=== PATIENT | male | born 1965 | race Caucasian/White ===

== ENCOUNTER → 2018-02-25 | Outpatient (CLI) | payer BC ==
--- NOTE | 2018-02-27 10:49 | MR ---
EXAMINATION TYPE: MR shoulder LT wo con DATE OF EXAM: 02/25/2018 COMPARISON: None HISTORY: Pain in left shoulder after a fall. Pain has lasted for approximately 2 weeks TECHNIQUE: Multiplanar, multisequence imaging of the left shoulder is performed without contrast. FINDINGS: Rotator Cuff: There is a low-grade partial-thickness tear of the most anterior insertional fibers of the supraspinatus measuring 0.7 x 0.8 mm. There is bursal surface fraying of the supraspinatus and mi ld tendinosis demonstrated is alteration of the and 6 signal of the myotendinous junction and distal fibers. Overlying this there is a small amount of fluid in the subacromial/deltoid bursa. Bursal surface fiber fraying is seen of the infraspinatus with mild tendinopathy. No discrete tear is identified. The teres minor is unremarkable in signal and morphology. The most distal insertional fibers of the s ubscapularis demonstrates signal heterogeneity indicative of mild tendinosis. No discrete tear is see n. Acromioclavicular Joint: There is moderate acromioclavicular arthropathy creating internal impingemen t as there is impression upon the myotendinous junction of the supraspinatus and slight alteration in signal. Acromioclavicular arthropathy is demonstrated as small marginal osteophytes and capsular hyp ertrophy with joint space narrowing. Glenohumeral Joint: Mild glenohumeral arthropathy is noted as there are few osseous cysts of the cm ral head and very mild glenohumeral joint space narrowing. Labrum: There is abnormal signal of the anterior inferior glenoid labrum and diminutive appearance of the anterior superior glenoid labrum. The posterior labrum appears intact but diminutive and of abno rmal signal in the superior aspect. Findings raise suspicion for glenoid labrum tear and could be con firmed with arthrography. Biceps Tendon: The long head of biceps is in normal location within bicipital groove. Bone marrow signal: No focal abnormal marrow signal is appreciated. Other: There is a small amount of fluid seen within the subcoracoid bursa. IMPRESSION: 1. Low-grade partial-thickness tear of the most anterior insertional fibers of the supraspinatus eric uring less than 1 cm. 2. Mild supraspinatus, infraspinatus, and subscapularis tendinopathy. 3. Moderate acromio clavicular arthropathy creating internal impingement of the supraspinatus myotend inous junction. 4. Findings suggestive of anterior inferior and anterior superior glenoid labral tear versus glenoid labrum degeneration with labral degeneration also seen of the posterior superior labrum. If clinical findings are fitting MR findings could be confirmed with MR arthrography. 5. Bursal surface fiber fraying of the supraspinatus and infraspinatus with small amount of fluid in the subacromial/subdeltoid bursa and subcoracoid bursa that may clinically correlate with bursitis. 6. Mild glenohumeral arthropathy.
== END ==
LOC: RADMRIMAIN 16:57
PROVIDERS: ATTEND Family Medicine
DX: M75.112 Incomplete rotator cuff tear or rupture of left shoulder, not specified as traumatic (principal); M75.82 Other shoulder lesions, left shoulder; M12.812 Other specific arthropathies, not elsewhere classified, left shoulder

== ENCOUNTER 2020-02-20 09:53 | Emergency (ER) | payer BC ==
[2020-02-20] MEDS ORDERED: SODIUM CHLORIDE 0.9% 1,000 ML IV STA (10:02)
[2020-02-20 10:03] VITALS: RESP 18
[2020-02-20] MEDS ORDERED: DEXAMETHASONE SOD PHOSPHATE 10 MG/ML 1 ML VIAL IV STA (10:32)
--- NOTE | 2020-02-20 10:35 | ED ---
General Adult HPI - General Chief complaint: Urogenital Stated complaint: Kidney pain. + covid on 02/16/20 Time Seen by Provider: 02/20/20 09:57 Source: patient Mode of arrival: ambulatory Limitations: no limitations - History of Present Illness Initial comments: Dictation was produced using [employer] dictation software. please excuse any grammatical, word or spelling errors. This patient was cared for during a federal and state declared state of emergency secondary to Covid 19 Chief Complaint: 54-year-old Covid positive male presents today with lower back pain History of Present Illness: 54-year-old male who presents with lower back pain. Patient states he tested Covid positive on Wednesday which was about 5 days ago. Patient states that over the last couple days she's been having worsening back pain. He has feeling like his kidneys are hurting. Patient denies any shortness of breath. Been having mild constitutional symptoms. He reports that his pain is worse when he lies flat or sits in a chair however gets better when he stands up and walks around. Does not have any history of back surgery or chronic back pain. Patient states that several years ago he had kidney stones. No nausea vomiting. The ROS documented in this emergency department record has been reviewed and confirmed by me. Those systems with pertinent positive or negative responses have been documented in the HPI. All other systems are other negative and/or noncontributory. PHYSICAL EXAM: General Impression: Alert and oriented x3, not in acute distress HEENT: Normocephalic atraumatic, extra-ocular movements intact, pupils equal and reactive to light bilaterally, mucous membranes moist. Cardiovascular: Heart regular rate and rhythm Chest: Able to complete full sentences, no retractions, no tachypnea Abdomen: abdomen soft, non-tender, non-distended, no organomegaly Musculoskeletal: Pulses present and equal in all extremities, no peripheral edema Lower back: No CVA tenderness, he has paraspinal muscular tenderness to palpation over the bilateral soft tissue paraspinal lumbar areas Motor: no focal deficits noted Neurological: CN II-XII grossly intact, no focal motor or sensory deficits noted Skin: Intact with no visualized rashes Psych: Normal affect and mood ED course: 54-year-old male presents with mechanical back pain. Patient's Covid positive. This is clinically symptoms from coronavirus. Vital signs upon arrival are within acceptable limits. Laboratory evaluation obtained. CBC unremarkable. Metabolic panel is negative. Glucose is 4+ glucose p this is likely secondary to his diabetic medication. KUB is negative. Clinical presentation consistent with musculoskeletal atraumatic back pain. Patient be discharged present with [id number] medications. Patient given pain medicines to take for severe pain. - Related Data Home Medications Medication Instructions Recorded Confirmed Aspirin 81 mg PO DAILY 02/20/20 02/20/20 Empagliflozin/Linagliptin 1 tab PO DAILY 02/20/20 02/20/20 [Glyxambi 25 mg-5 mg Tablet] Gemfibrozil [Lopid] 1,200 mg PO HS 02/20/20 02/20/20 Pravastatin Sodium 80 mg PO DAILY 02/20/20 02/20/20 glipiZIDE XL [Glucotrol Xl] 10 mg PO DAILY 02/20/20 02/20/20 metFORMIN HCL 1,000 mg PO BID 02/20/20 02/20/20 Previous Rx's Medication Instructions Recorded HYDROcodone/APAP 5-325MG [[place] 1 tab PO Q6HR PRN 3 Days #12 tab 02/20/20 5-325] Allergies Allergy/AdvReac Type Severity Reaction Status Date / Time Penicillins Allergy Rash/Hives Verified 02/20/20 10:34 Review of Systems ROS Statement: Those systems with pertinent positive or pertinent negative responses have been documented in the HPI. ROS Other: All systems not noted in ROS Statement are negative. Past Medical History Past Medical History: Diabetes Mellitus, Hyperlipidemia History of Any Multi-Drug Resistant Organisms: None Reported Past Surgical History: No Surgical Hx Reported Past Psychological History: No Psychological Hx Reported Smoking Status: Former smoker Past Alcohol Use History: Rare General Exam Limitations: no limitations Course Vital Signs 02/20/20 10:03 Temperature 98.8 F Pulse Rate 98 Respiratory 18 Rate Blood Pressure 124/100 O2 Sat by Pulse 99 Oximetry Medical Decision Making - Lab Data Result diagrams: 02/20/20 10:30 02/20/20 10:30 Lab Results 02/20/20 02/20/20 02/20/20 Range/Units 10:30 10:30 10:30 WBC 6.7 (3.8-10.6) k/uL RBC 4.95 (4.30-5.90) m/uL Hgb 15.5 (13.0-17.5) gm/dL Hct 45.3 (39.0-53.0) % MCV 91.6 (80.0-100.0) fL MCH 31.4 (25.0-35.0) pg MCHC 34.3 (31.0-37.0) g/dL RDW 12.5 (11.5-15.5) % Plt Count 161 (150-450) k/uL MPV 8.8 Neutrophils % 74 % Lymphocytes % 17 % Monocytes % 6 % Eosinophils % 1 % Basophils % 2 % Neutrophils # 4.9 (1.3-7.7) k/uL Lymphocytes # 1.1 (1.0-4.8) k/uL Monocytes # 0.4 (0-1.0) k/uL Eosinophils # 0.0 (0-0.7) k/uL Basophils # 0.1 (0-0.2) k/uL Sodium 140 (137-145) mmol/L Potassium 4.1 (3.5-5.1) mmol/L Chloride 105 (98-107) mmol/L Carbon Dioxide 24 (22-30) mmol/L Anion Gap 11 mmol/L BUN 15 (9-20) mg/dL Creatinine 0.75 (0.66-1.25) mg/dL Est GFR (CKD-EPI)AfAm >90 (>60 ml/min/1.73 sqM) Est GFR (CKD-EPI)NonAf >90 (>60 ml/min/1.73 sqM) Glucose 149 H (74-99) mg/dL Calcium 9.6 (8.4-10.2) mg/dL Total Bilirubin 1.1 (0.2-1.3) mg/dL AST 32 (17-59) U/L ALT 34 (4-49) U/L Alkaline Phosphatase 86 (38-126) U/L Total Protein 8.1 (6.3-8.2) g/dL Albumin 5.0 (3.5-5.0) g/dL Lipase 129 (23-300) U/L Urine Color Yellow Urine Appearance Clear (Clear) Urine pH 5.5 (5.0-8.0) Ur Specific [place] 1.043 H (1.001-1.035) Urine Protein Trace H (Negative) Urine Glucose (UA) 4+ H (Negative) Urine Ketones Trace H (Negative) Urine Blood Negative (Negative) Urine Nitrite Negative (Negative) Urine Bilirubin Negative (Negative) Urine Urobilinogen <2.0 (<2.0) mg/dL Ur Leukocyte Esterase Negative (Negative) Disposition Clinical Impression: Back pain Disposition: HOME SELF-CARE Condition: Good Instructions (If sedation given, give patient instructions): Back Pain (ED) Prescriptions: HYDROcodone/APAP 5-325MG [[place] 5-325] 1 tab PO Q6HR PRN 3 Days #12 tab PRN Reason: Severe Pain Is patient prescribed a controlled substance at d/c from ED?: No Referrals: Leonel Patel MD [Primary Care Provider] - 1-2 days Time of Disposition: 11:08
[2020-02-20 10:38] LABS: WBC 6.7 k/uL (3.8-10.6)
[2020-02-20 10:39] LABS: Appearance,Urine Clear (Clear); Basophils # (A) 0.1 k/uL (0-0.2); Basophils % (A) 2 %; Bilirubin,Urine Negative (Negative); Blood,Urine Negative (Negative); Color,Urine Yellow; Eosinophils % (A) 1 %; Glucose,Urine (UA) 4+ (Negative); HCT 45.3 % (39.0-53.0); HGB 15.5 gm/dL (13.0-17.5); Ketones,Urine Trace (Negative); Leukocyte Esterase,Urine Negative (Negative); Lymphocytes # (A) 1.1 k/uL (1.0-4.8); Lymphocytes % (A) 17 %; MCH 31.4 pg (25.0-35.0); MCHC 34.3 g/dL (31.0-37.0); MCV 91.6 fL (80.0-100.0); Mean Platelet Volume 8.8; Monocytes # (A) 0.4 k/uL (0-1.0); Monocytes % (A) 6 %; Neutrophils # (A) 4.9 k/uL (1.3-7.7); Neutrophils % (A) 74 %; Nitrite,Urine Negative (Negative); PH, Urine 5.5 (5.0-8.0); Platelet Count 161 k/uL (150-450); Protein,Urine Trace (Negative); RBC 4.95 m/uL (4.30-5.90); RDW 12.5 % (11.5-15.5); Specific Gravity,Urine 1.043 (1.001-1.035); Urobilinogen,Urine <2.0 mg/dL (<2.0)
[2020-02-20 10:50] LABS: ALT 34 U/L (4-49); AST 32 U/L (17-59); African American GFR (CKD) >90 (>60 ml/min/1.73 sqM); Alkaline Phosphatase 86 U/L (38-126); Anion Gap 11 mmol/L; Blood Urea Nitrogen 15 mg/dL (9-20); Calcium 9.6 mg/dL (8.4-10.2); Carbon Dioxide 24 mmol/L (22-30); Chloride 105 mmol/L (98-107); Glucose 149 mg/dL (74-99); Lipase 129 U/L (23-300); Non-African American GFR(CKD) >90 (>60 ml/min/1.73 sqM); Potassium 4.1 mmol/L (3.5-5.1); Sodium 140 mmol/L (137-145); Total Bilirubin 1.1 mg/dL (0.2-1.3); Total Protein 8.1 g/dL (6.3-8.2)
--- NOTE | 2020-02-20 10:56 | XR ---
EXAMINATION TYPE: XR KUB DATE OF EXAM: 02/20/2020 COMPARISON: 10/06/2011 HISTORY: Pain TECHNIQUE: One view abdominal series FINDINGS: The osseous structures are intact. The bowel gas pattern is nonspecific. Lung bases are clear. Hype rtrophic and degenerative change of the spine. Arthropathy of the hips. Hypertrophic change of the ac etabulum. IMPRESSION: 1. Nonspecific abdomen.
[2020-02-20 11:23] VITALS: BP 108/69; PULSE 92; TEMP 98.2
== END 2020-02-20 11:15 | disposition home or self-care (01) ==
LOC: EC 09:53
DX: M54.5 Low back pain (principal); U07.1 COVID-19; E11.9 Type 2 diabetes mellitus without complications; E78.5 Hyperlipidemia, unspecified; Z79.82 Long term (current) use of aspirin; Z79.899 Other long term (current) drug therapy; Z79.84 Long term (current) use of oral hypoglycemic drugs; Z88.0 Allergy status to penicillin; Z87.891 Personal history of nicotine dependence; Z87.442 Personal history of urinary calculi
CPT/HCPCS: 36415; 80053; 83690; 85025; 81003; 74018; 99283; 96374; 96361; J1100

== ENCOUNTER → 2020-03-15 | Outpatient (CLI) | payer BC ==
[2020-03-15 07:37] LABS: Basophils # (A) 0.1 k/uL (0-0.2); Basophils % (A) 1 %; Eosinophils # (A) 0.1 k/uL (0-0.7); Eosinophils % (A) 2 %; HCT 42.4 % (39.0-53.0); HGB 14.3 gm/dL (13.0-17.5); Lymphocytes # (A) 1.9 k/uL (1.0-4.8); Lymphocytes % (A) 26 %; MCHC 33.8 g/dL (31.0-37.0); MCV 91.7 fL (80.0-100.0); Mean Platelet Volume 9.5; Monocytes # (A) 0.5 k/uL (0-1.0); Monocytes % (A) 7 %; Neutrophils # (A) 4.5 k/uL (1.3-7.7); Neutrophils % (A) 62 %; Platelet Count 164 k/uL (150-450); RBC 4.63 m/uL (4.30-5.90); RDW 13.8 % (11.5-15.5); WBC 7.2 k/uL (3.8-10.6)
[2020-03-15 11:13] LABS: African American GFR (CKD) 113.4 (60.0-200.0); Albumin/Globulin Ratio 2.08 (1.60-3.17); BUN/Creat Ratio 24.44 Ratio (12.00-20.00); Calcium 9.4 mg/dL (8.7-10.3); Chol/HDL Ratio 5.64; Globulin 2.4 g/dL (1.6-3.3); Non-African American GFR(CKD) 97.9 (60.0-200.0); Potassium 4.7 mmol/L (3.5-5.5); Prostate Specific Antigen 0.4 ng/mL (0.0-3.5); Total Bilirubin 0.8 mg/dL (0.2-1.2); Total Protein 7.4 g/dL (6.2-8.2)
== END | disposition home or self-care (01) ==
LOC: LABWHC1 07:05
PROVIDERS: ATTEND Family Medicine
DX: Z00.00 Encounter for general adult medical examination without abnormal findings (principal); E10.9 Type 1 diabetes mellitus without complications; Z13.220 Encounter for screening for lipoid disorders; Z13.31 Encounter for screening for depression; Z71.3 Dietary counseling and surveillance
CPT/HCPCS: 36415; 80053; 80061; 83036; 83721; 84153; 84443; 85025

== ENCOUNTER 2020-04-12 07:44 | Day surgery (SDC) | payer BC ==
[2020-04-09 15:39] VITALS: BMI 28.7
[~2020-04-12 07:44] MED LIST: LACTATED RINGERS 1,000 ML IV SCH
[2020-04-12] MEDS ORDERED: LACTATED RINGERS 1,000 ML IV ONE ×2 (08:15)
[2020-04-12] MEDS ORDERED: LIDOCAINE 1% (10MG/ML) FOR IV START INTRADERMA ONE (08:20)
[2020-04-12 08:33] LABS: Glucose,Whole Blood 168 mg/dL (75-99)
[2020-04-12 08:34] VITALS: TEMP 98
[2020-04-12] MEDS ORDERED: LIDOCAINE 1% INJ 10MG/ML (20 ML MDV) ONE (09:00)
[2020-04-12] MEDS ORDERED: PROPOFOL 10 MG/ML 20 ML VIAL IV ONE (09:00)
--- NOTE | 2020-04-12 09:12 | P.GSHP ---
History of Present Illness H&P Date: 04/12/20 Chief Complaint: History of colon polyps This a 54-year-old male presents today for colonoscopy. Patient has had a positivecolonGuarded test. [place] any obvious rectal bleeding. Past Medical History Past Medical History: Diabetes Mellitus, Hyperlipidemia Additional Past Medical History / Comment(s): + COLOGARD, SARCOIDOSIS History of Any Multi-Drug Resistant Organisms: None Reported Past Surgical History: Tonsillectomy Additional Past Surgical History / Comment(s): LUNG BX Past Anesthesia/Blood Transfusion Reactions: No Reported Reaction Smoking Status: Former smoker - Past Family History Mother Family Medical History: No Reported History Medications and Allergies Home Medications Medication Instructions Recorded Confirmed Type Aspirin 81 mg PO DAILY 02/20/20 04/12/20 History Empagliflozin/Linagliptin 1 tab PO DAILY 02/20/20 04/12/20 History [Glyxambi 25 mg-5 mg Tablet] Gemfibrozil [Lopid] 1,200 mg PO HS 02/20/20 04/12/20 History HYDROcodone/APAP 5-325MG [[place] 1 tab PO Q6HR PRN 3 Days #12 tab 02/20/20 04/12/20 Rx 5-325] Pravastatin Sodium 80 mg PO DAILY 02/20/20 04/12/20 History glipiZIDE XL [Glucotrol Xl] 10 mg PO DAILY 02/20/20 04/12/20 History metFORMIN HCL 1,000 mg PO BID 02/20/20 04/12/20 History Allergies Allergy/AdvReac Type Severity Reaction Status Date / Time Penicillins Allergy Rash/Hives Verified 04/12/20 08:19 Surgical - Exam Vital Signs Temp Pulse Resp BP Pulse Ox 98.0 F 101 H 16 148/78 97 04/12/20 08:25 04/12/20 08:25 04/12/20 08:25 04/12/20 08:25 04/12/20 08:25 - General well developed, well nourished, no distress - Eyes PERRL - ENT normal pinna - Neck no masses - Respiratory normal expansion - Cardiovascular Rhythm: regular - Abdomen Abdomen: soft, non tender Results - Labs Abnormal Lab Results - Last 24 Hours (Table) 04/12/20 Range/Units 08:30 POC Glucose (mg/dL) 168 H (75-99) mg/dL Assessment and Plan Assessment: Positive: There are colon guard test. We'll perform colonoscopy
--- NOTE | 2020-04-12 09:25 | P.OP ---
Date of Procedure: 04/12/20 Preoperative Diagnosis: History of colorectal guard test positive Postoperative Diagnosis: Transverse colon polyp Left colon polyp Diverticulosis Procedure(s) Performed: colonoscopy Anesthesia: MAC Surgeon: Richard Gongora Pathology: other (Transverse colon polyp, left colon polyp) Condition: stable Disposition: PACU Description of Procedure: The patient's placed on the endoscopy table in the lateral position. He received IV sedation. Digital rectal exam was performed which revealed no abnormalities. Flexible colonoscope was then placed patient anus and passed throughout the entire colon. The ileocecal valve was visualized. The cecum, ascending and colon appeared normal. In the mid transverse colon there is small sessile polyp seen this removed with a cold forcep. The scope was withdrawn the remainder of the transverse colon appeared normal. In the left colon there was another polyp seen this removed with the cold forcep. There was scattered diverticulosis in the left colon and sigmoid colon the scope was then brought back the rectum and this appeared normal. Scope was withdrawn for patient.
[2020-04-12 09:45] VITALS: BP 114/79; PULSE 88; RESP 16
== END 2020-04-12 10:00 | disposition home or self-care (01) ==
LOC: ORWHC2ENDO 07:44
PROVIDERS: ATTEND Surgery
DX: D12.3 Benign neoplasm of transverse colon (principal); K63.5 Polyp of colon; E11.9 Type 2 diabetes mellitus without complications; E78.5 Hyperlipidemia, unspecified; D86.9 Sarcoidosis, unspecified; Z90.89 Acquired absence of other organs; Z98.890 Other specified postprocedural states; Z87.891 Personal history of nicotine dependence; Z79.82 Long term (current) use of aspirin; Z79.84 Long term (current) use of oral hypoglycemic drugs; Z79.899 Other long term (current) drug therapy; Z88.0 Allergy status to penicillin
CPT/HCPCS: 88305; 45380; J2001; J2704

== ENCOUNTER → 2022-02-04 | Outpatient (CLI) | payer BC ==
[2022-02-04 09:22] LABS: African American GFR (CKD) >90 (>60 ml/min/1.73 sqM); Blood Urea Nitrogen 22 mg/dL (9-20); Non-African American GFR(CKD) >90 (>60 ml/min/1.73 sqM)
--- NOTE | 2022-02-04 10:36 | CT ---
EXAMINATION TYPE: CT chest w con DATE OF EXAM: 02/04/2022 COMPARISON: None HISTORY: 56-year-old male R07.89, Chest pain. Family history of sarcoidosis. TECHNIQUE: Contiguous axial scanning of the chest after the administration of 70ml mL of Isovue 300. Coronal/sagittal reconstructions performed. CT DLP: 423.3mGycm. Automatic exposure control utilized for a dose reduction. FINDINGS: The heart is normal size without pericardial effusion. Scattered three-vessel coronary artery calcifi cations are present in remarkable for coronary artery disease. Aorta normal caliber with conventional arch vessel branching anatomy. Mildly enlarged caliber to the main right and left pulmonary arteries measuring up to 2.8 cm may refl ect underlying pulmonary arterial hypertension. A few nonenlarged mediastinal lymph nodes are present. No thoracic lymphadenopathy by CT size criteri a. There is minimal central bronchial wall thickening. Mild hazy dependent atelectasis posterior lower l obes. Some focal patchy density posterior right perihilar region, axial image 23 and coronal image 62. Some elongated nodularity measuring 1.3 x 0.3 cm anterior right midlung, axial image 28 can be reasse ssed at short interval follow-up. Otherwise, no consolidation or pleural effusion. Tiny hiatal hernia is suggested. Otherwise, the visualized upper abdomen shows a tiny anterior splenu le. Bones: There is dish within the mid and lower thoracic spine. Fatty matrix hemangioma within the T7 v ertebral body. IMPRESSION: 1. CAD with 3 vessel coronary calcifications. 2. Possible underlying pulmonary arterial hypertension. 3. Some mild central bronchial wall thickening could reflect bronchitis or asthma. Focal patchy opaci ty posterior right perihilar region probably an area of atelectasis. Developing pneumonia or poorly d efined nodule less likely. Reassess at a three-month follow-up. 4. Also, reassess the 1.3 x 0.3 cm elongated nodularity within the anterior right midlung at the 3 mo nth follow-up. 5. No lymphadenopathy or perilymphatic nodularity to clearly indicate sarcoidosis at this time. 6. DISH mid and lower thoracic spine.
== END | disposition home or self-care (01) ==
LOC: RADCTMAIN 08:44
PROVIDERS: ATTEND Family Medicine
DX: I25.10 Atherosclerotic heart disease of native coronary artery without angina pectoris (principal); D86.9 Sarcoidosis, unspecified; M48.14 Ankylosing hyperostosis [Forestier], thoracic region; R91.8 Other nonspecific abnormal finding of lung field
CPT/HCPCS: 82565; 84520; 71260; 36415; Q9967